=== PATIENT | female | born 1965 | race African-American/Black ===

== ENCOUNTER 2018-08-12 06:04 | Emergency (ER) | payer BC, OTHER ==
[2018-08-12 06:38] VITALS: BMI 34.3
--- NOTE | 2018-08-12 07:13 | PDOC ---
Attending Attestation - Resident Resident Name: Asiya Devine - HPI HPI: 08/12/18 08:12 Pt presents to the ED complaining of a two week history of pain to the bottom of her left foot. Does not recall trauma. Denies fever, swelling or other complaints. States that the pain is worse with walking, especially after a prolonged period of rest. Denies prior history of similar pain. - Physicial Exam PE: 08/12/18 08:17 Agree with resident exam. no deformity or ecchymosis of the foot. No point tenderness. full ROM of the foot. - Medical Decision Making 08/12/18 08:20 Pt presents to the ED complaining of pain and tenderness to the plantar surface of the foot without history of trauma. Differential includes plantar fascitis, arthritis, unlikely gout or occult fracture. Will check xrays, treat with ibuprofen and reassess.
--- NOTE | 2018-08-12 07:47 | PDOC ---
History of Present Illness - General Chief Complaint: Pain Stated Complaint: PAIN, LT FT Time Seen by Provider: 08/12/18 07:11 - History of Present Illness Initial Comments: 52F w/ pmhx of asthma who presents with 2 week hx of L foot pain. She states the pain started at work and has been progressively getting worse over the past 2 weeks. Since then she has been using a cane to walk due to pain while weightbearing on her L foot. Pain is 10/10 while walking, and 8/10 while at rest. During ambulation, she states the pain starts at the lateral aspect of her L foot and radiates to the plantar aspect. Denies tingling/numbness in extremities, weakness in b/l legs, leg swelling, howard/ d, f/c, n/v, sob, cp, abd, pain, urinary/bowel symptoms. 08/12/18 07:33 Past History - Past Medical History Allergies/Adverse Reactions: Allergies Allergy/AdvReac Type Severity Reaction Status Date / Time No Known Drug Allergies Allergy Verified 08/12/18 06:36 Home Medications: Ambulatory Orders Cholecalciferol (Vitamin D3) [Vitamin D] 2,000 unit PO DAILY 04/02/13 Albuterol Sulfate [Proair Hfa -] 1 - 2 inh PO DAILY PRN 06/12/13 Aspirin [ASA -] 81 mg PO DAILY 06/15/13 Anemia: Yes Asthma: Yes (X 20 YRS) Cancer: No Cardiac Disorders: No CVA: No COPD: No CHF: No Dementia: No Diabetes: No GI Disorders: No Disorders: No HTN: No Hypercholesterolemia: No Liver Disease: No Seizures: No Thyroid Disease: No - Surgical History Abdominal Surgery: No Appendectomy: No Cardiac Surgery: No Cholecystectomy: Yes () Lung Surgery: No Neurologic Surgery: No Orthopedic Surgery: Yes (RIGHT HAND CARPAL TUNNEL 2012) - Immunization History Td Vaccination: Yes TDAP Vaccination: Yes Immunization Up to Date: Yes - Suicide/Smoking/Psychosocial Hx Smoking Status: No Smoking History: Never smoked Years of Tobacco Use: 0 Have you smoked in the past 12 months: No Number of Cigarettes Smoked Daily: 0 Cigars Per Day: 0 Information on smoking cessation initiated: No Hx Alcohol Use: No Drug/Substance Use Hx: No Substance Use Type: None Hx Substance Use Treatment: No Review of Systems - Review of Systems Able to Perform ROS?: Yes Is the patient limited Georgian proficient: No Constitutional: No: Chills, Fever, Night Sweats HEENTM: No: Recent change in vision Respiratory: No: Shortness of Breath, SOB with Exertion, SOB at Rest Cardiac (ROS): No: Chest Pain ABD/GI: No: Constipated, Diarrhea Neurological: No: Headache, Numbness, Paresthesia, Tingling, Weakness, Dizziness *Physical Exam - Vital Signs Last Vital Signs Temp Pulse Resp BP Pulse Ox 97.8 F 76 18 130/72 97 08/12/18 06:10 08/12/18 06:10 08/12/18 06:10 08/12/18 06:10 08/12/18 06:10 - Physical Exam General Appearance: Yes: Appropriately Dressed HEENT: positive: EOMI, BJ Neck: positive: Supple Respiratory/Chest: positive: Lungs Clear, Normal Breath Sounds Cardiovascular: positive: Regular Rhythm, Regular Rate, S1, S2. negative: Murmur Vascular Pulses: Dorsalis-Pedis (R): 2+, Doralis-Pedis (L): 2+ Extremity: positive: Tender (lateral aspect of L foot) Neurologic: positive: systems administration analyst II-XII NML intact, Fully Oriented Medical Decision Making - Medical Decision Making L foot pain; Ddx includes: plantar fasciitis vs. sprain vs. fracture vs. gout -Likely plantar fasciitis, will give NSAIDs for pain -R/o fracture, will obtain L foot xray -Unlikely gout as pt's symptoms do not include localized joint tenderness with warmth and erythema 08/12/18 08:06 L foot xray showed some arthritic changes, No acute fracture. Pt stable. Will d/c home with NSAIDs for pain. Recommend to follow up with PCP. 08/12/18 09:41 *DC/Admit/Observation/Transfer Diagnosis at time of Disposition: Foot pain Qualifiers: Laterality: left Qualified Code(s): M79.672 - Pain in left foot - Discharge Dispostion Disposition: HOME Condition at time of disposition: Good Decision to Admit order: No - Referrals Referrals: Grant Vasquez [Primary Care Provider] - - Patient Instructions Additional Instructions: You were seen in the ED for complaints of left foot pain. In the ED, an xray of your left foot was done that showed no acute fracture and some arthritic changes. There does not be an acute need for immediate hospitalization. You were advised to follow up with your primary care physician within 1 week. You were given a prescription for Ibuprofen 600 mg, three times a day as needed for pain. If you experience persistent pain, chest pain, shortness of breath, leg weakness , or an inability to walk, please proceed to your nearest emergency department immediately. - Post Discharge Activity
[2018-08-12] MEDS ORDERED: IBUPROFEN 600 MG TABLET (FP) PO ONE ×2 (07:48→07:56)
[2018-08-12 09:58] VITALS: BP 140/79; PULSE 61; TEMP 97.4
== END 2018-08-12 09:56 | disposition home or self-care (01) ==
LOC: JER 06:04
DX: M79.672 Pain in left foot (principal); Z87.09 Personal history of other diseases of the respiratory system; Z86.2 Personal history of diseases of the blood and blood-forming organs and certain disorders involving the immune mechanism
CPT/HCPCS: 73630-TC-LT; 99282-25